=== PATIENT | male | born 1955 | race Caucasian/White ===

== ENCOUNTER → 2022-08-01 | Outpatient (CLI) | payer MEDICARE, MEDICAID, SELFPAY ==
--- NOTE | 2022-08-01 08:10 | ADU_ITS ---
Reason For Study: PVD Right Velocities Left Velocities Ext. Iliac Artery, dist = 157.8 cm./sec. Ext Iliac Artery, dist = 83.5 cm./sec. Common Femoral Artery, mid = 106.3 cm./sec. Common Femoral Artery, mid = 116.1 cm./sec. Supf Femoral Artery, prox = 68.6 cm./sec. Supf. Femoral Artery, prox = 103.9 cm./sec. Supf Femoral Artery, mid = 69.9 cm./sec. Prox anastomosis, 33.5 cm/sec. Supf Femoral Artery, dist. = 32.2 cm./sec. Prox graft, 61.6 cm/sec. Profunda Femoral Artery = 100.2 cm./sec. Prox/Mid graft, 65.8 cm/sec. Popliteal Artery, mid = 47.9 cm./sec. Mid graft, 76.4 cm/sec. Post. Tibial Artery, prox = 44.4 cm./sec. Mid/Distal graft, 85 cm/sec. Post. Tibial Artery, mid = 56.6 cm./sec. Distal graft, 53 cm/sec. Post. Tibial Artery, dist = 39.2 cm./sec. Distal anastomosis, 78.8 cm/sec. Peroneal Artery, prox = 33.9 cm./sec. Profunda Femoral Artery = 57 cm./sec. Peroneal Artery, mid = 32.7 cm./sec. Post. Tibial Artery, prox = 54.3 cm./sec. Peroneal Artery,dist = 15.1 cm./sec. Post Tibial Artery, mid = 47.5 cm./sec. Ant. Tibial Artery, prox = 25.6 cm./sec. Post Tibial Artery, dist. = 33.3 cm./sec. Ant. Tibial Artery, mid = 20.6 cm./sec. Peroneal Artery, prox = 23.7 cm./sec. Ant. Tibial Artery, dist = 21.6 cm./sec. Peroneal Artery, mid = 34.2 cm./sec. Peroneal Artery,dist. = 17.7 cm./sec. Ant.Tibial Artery, prox = 32.3 cm./sec. Ant Tibial Artery, mid = 22.8 cm./sec. Ant. Tibial Artery, distal = 24.8 cm./sec. Prox Anast: 1.31cm x 1.40cm Distal Anast: 1.34cm x 1.55cm. Procedure Exam performed in department. VL/US Art Duplex Bilat Lower Ext Interpretation Summary Right leg no stenosis noted. Left leg bypass graft patent and no stenosis. Ordering Physician: Kevin Rojas Referring Physician: Koby De La Cruz Performed By: Brittney Torres RDCS, RVT
--- NOTE | 2022-08-01 08:10 | CDU_ITS ---
Reason For Study: Pain Rt. Velocities/BP Lt. Velocities/BP Prox CCA 84/16 cm/sec. Prox CCA 111/27 cm/sec. Mid CCA 97/22 cm/sec. Mid CCA 86/20 cm/sec. Dist CCA 94/23 cm/sec. Dist CCA 83/24 cm/sec. Prox ICA 140/30 cm/sec. Prox ICA 131/41 cm/sec. Mid ICA 109/23 cm/sec. Mid ICA 118/32 cm/sec. Dist ICA 100/25 cm/sec. Dist ICA 103/27 cm/sec. Rt. ICA/CCA = 1.4. Lt. ICA/CCA = 1.5. Prox ECA 108/9 cm/sec. Prox ECA 79/7 cm/sec. Rt. Vert. 35/12 cm/sec. Lt. Vert. 35/11 cm/sec. Right Extracranial There is heterogeneous, irregular atherosclerotic plaque noted in the right common carotid artery. There is heterogeneous, irregular atherosclerotic plaque noted in the right internal carotid artery. There is intimal thickening but no significant atherosclerotic plaque noted in the right external carotid artery. Antegrade flow is noted in the right vertebral artery. Left Extracranial There is heterogeneous, irregular atherosclerotic plaque noted in the left common carotid artery. There is heterogeneous, irregular atherosclerotic plaque noted in the left internal carotid artery. There is no significant atherosclerotic plaque noted in the left external carotid artery. Antegrade flow is noted in the left vertebral artery. Procedure Carotid Duplex 68964. This is a Carotid Duplex examination using B-mode, color flow and specral Doppler. Exam performed in department. VL/Carotid Duplex Ultrasound Interpretation Summary Moderate (50-69%) stenosis right extracranial internal carotid. Moderate (50-69 %) stenosis left extracranial internal carotid. Flow within the vertebral arteries is antegrade bilaterally. Ordering Physician: Kevin Rojas Referring Physician: Koby De La Cruz Performed By: Brittney Torres, SHAHEEDCS, RVT
--- NOTE | 2022-08-01 08:18 | AAVD_ITS ---
Reason For Study: AAA Aorta Measurements Aorta Doppler Measurements Proximal aorta measures3.43 x 3.48cm. in cross- Peak systolic flow velocities within the proximal sectional axis. aorta measure 42.6 cm/sec. Proximal aorta measures3.42cm. in longitudinal Peak systolic flow velocities within the mid aorta axis. measure 45.5 cm/sec. Mid aorta measures2.59 x 2.30cm. in cross- Peak systolic flow velocities within the distal sectional axis. aorta measure 39.1 cm/sec. Mid aorta measures2.45cm. in longitudinal axis. Distal aorta measures1.91 x 2.03cm. in cross- sectional axis. Distal aorta measures1.84cm. in longitudinal axis. Left Iliac Artery Left iliac artery measures 1.35 x 1.08 cm. in the cross-sectional axis. Left iliac artery measures 0.98 cm. in the longitudinal axis. Peak systolic velocity in the left iliac artery measures 80.2 cm/sec. Right Iliac Artery Right iliac artery measures 1.35 x 1.29 cm. in the cross-sectional axis. Right iliac artery measures 1.04 cm. in the longitudinal axis. Peak systolic velocity in the right iliac artery measures 100.3 cm/sec. Procedure Aorta IVC Iliac vasculature or bypass grafts [id number]. Exam performed in department. VL/Abd Aortic/IVC Duplex scan Interpretation Summary 3.48cm aortic aneurysm. No stenosis noted. Ordering Physician: Kevin Rojas Referring Physician: Koby De La Cruz Performed By: Brittney Torres, TRACY, RVT
--- NOTE | 2022-08-01 08:18 | RDU_ITS ---
Reason For Study: PVD Right Renal Artery Left Renal Artery Right renal artery ostium Left renal artery ostium 133.7/34.9 153.2/34.5 RSV/EDV. PSV/EDV. Right renal artery proximal Left renal artery proximal PSV/EDV 151.2/39.3 PSV/EDV. 127.1/32.7 . Right renal artery mid 135.8/39.3 Left renal artery mid 124.9/28.3 PSV/EDV. PSV/EDV . Right renal artery distal Left renal artery distal 133.7/29.3 157.8/39.3 PSV/EDV. PSV/EDV. Right RAR 3.36. Left RAR 2.85. Right Renal Parenchyma Left Renal Parenchyma Upper Pole Medula 27.8/8.5 Left upper pole medulla 48.3/11.8 PSV/EDV. PSV/EDV . Right upper pole medulla EDR 0.3 . Left upper pole medulla EDR 0.2 . Right upper pole medulla R.I. Left upper pole medulla R.I. 0.76 . 0.70 . UP Cortex 34.6/12.7 PSV/EDV. Upper Ki Cortx 26.4/6.1 PSV/EDV. Left upper pole cortex EDR 0.4 . Right upper pole cortex EDR 0.2 . Left upper pole cortex R.I. 0.63 . Right upper pole cortex R.I. Left lower Pole medulla 19.1/9 0.77 . PSV/EDV . Right lower Pole medulla 20.7/6.1 Left lower pole medulla EDR 0.5 . PSV/EDV . Left lower pole medulla R.I. 0.53 . Right lower pole medulla EDR 0.3 . Lower Pole Cortx 21.4/7.3 PSV/EDV. Right lower pole medulla R.I. Left lower pole cortex EDR 0.3 . 0.71 . Left lower pole cortex R.I. 0.66 . Lower Pole Cortex 21.2/7 PSV/EDV. Left Renal Hilar Right lower pole cortex EDR 0.3 . LT Hilar avg 196.6/46.4 PSV/EDV . Right lower pole cortex R.I. Left hilar acceleration time 60 0.67 . m/sec. Right Renal Hilar Left Renal Dimensions Right Hilar avg 149.1/45.9 Left kidney size 10.18 cm . PSV/EDV. Left cortical dimension 2.24 cm . Right Renal Dimensions Right kidney size 12.78 cm . Right cortical dimension 1.74 cm . Aorta Proximal abdominal aorta 3.25 x 3.36 cm . Proximal abdominal aorta peak systolic velocity is 46.9 cm/sec . Distal abdominal aorta 2.06 x 2.01 cm . Distal abdominal aorta peak systolic velocity is 61 cm/sec . VL/Renal Artery Duplex Ultrasound Interpretation Summary Bilateral renals <60%. Ordering Physician: Kevin Rojas Referring Physician: Gurpreet De La Cruz Performed By: Brittney Torres, TRACY, RVT
--- NOTE | 2022-08-01 08:19 | ART_ITS ---
Reason For Study: PVD Procedure A bilateral lower extremity continuous wave Doppler with analog waveform analysis and ankle brachial indexes. Left Segmental Pressures Left brachial= 90mmHg. Left posterior tibial artery = 93mmHg. Left dorsalis pedis artery = 62mmHg. Left digit = 60 mmHg. The left dorsalis pedis waveforms are triphasic. The left posterior tibial artery waveforms are triphasic. Right Segmental Pressures Right brachial= 87mmHg. Right posterior tibial artery = 68mmHg. Right dorsalis pedis artery = 74mmHg. Right digit = 63 mmHg. The right dorsalis pedis waveforms are triphasic. The right posterior tibial artery waveforms are triphasic. Indices The right ankle brachial index by the dorsalis pedis is 0.82. The right ankle brachial index by the posterior tibial artery is 0.76. The right digital-brachial index is 0.70. The left ankle brachial index by the dorsalis pedis is 0.69. The left ankle brachial index by the posterior tibial artery is 1.03. The left digital-brachial index is 0.67. VL/Ankle Brachial Index Interpretation Summary Rild mild occlussive disease with Huyen 0.82. Left normal at rest 1.03. Bialteral triphasic flow. Ordering Physician: Kevin Rojas Referring Physician: Koby De La Cruz Performed By: Brittney Torres, TRACY, RVT
[2022-08-01 14:16] LABS: Absolute Lymphocyte Count 2.14 X10^3/uL (0.83-4.51); Absolute Neutrophil Count 12.4 X10^3/uL (2.0-7.7); Basophil# 0.05 X10^3/uL; Basophil% 0.3 % (0-1); Eosinophil# 0.09 X10^3/uL; Eosinophils% 0.6 % (0-5); Hematocrit 40.1 % (40-54); Lymphocyte # 2.14 X10^3/ul (0.83-4.51); Lymphocyte % 13.6 % (19-41); Mean Corp Hgb Conc 32.4 g/dL (32-36); Mean Corpuscular Hgb 27.1 pg (27.0-32.0); Mean Corpuscular Volume 83.7 fL (80-94); Mean Platelet Vol. 9.7 fl (6.2-12.0); Monocyte# 0.96 X10^3/uL; Monocyte% 6.1 % (0-10); NRBC Flagged by Analyzer 0 % (0-5); Neutrophil # 12.38 X10^3/uL (2.7-7.7); Neutrophil % 78.6 % (47-70); Platelet Count 351 K/mm3 (150-450); RBC Distribution Width CV 14.4 % (11.6-14.6); RBC Distribution Width SD 44.1 fl (35.1-43.9); Red Blood Count 4.79 M/mm3 (4.6-6.2); White Blood Count 15.7 K/mm3 (4.4-11.0)
[2022-08-01 14:20] LABS: Erythrocyte Sedimentation Rate 60 mm/hr (0-20)
[2022-08-01 14:43] LABS: ALB/GLOB Ratio 0.6 RATIO (0.9-2.4); AST(SGOT) 9 U/L (15-37); Alanine Aminotransfer ALT/SGPT 14 U/L (16-61); Albumin, Serum 2.8 g/dL (3.2-5.0); Alkaline Phosphatase 88 U/L (45-117); Anion Gap 6 (5-15); BUN 11 mg/dL (7-18); BUN/Creat Ratio 9.8 RATIO (10-20); Chloride 105 mmol/L (98-107); Creatinine, Serum 1.12 mg/dL (0.70-1.30); EST Glomerular Filtration Rate 69 mL/min (>60); Est Glom Filt Rate - Afr Amer 84 mL/min (>60); Globulin 4.4 g/dL (2.2-4.2); Glucose 139 mg/dL (74-106); LDH 171 U/L (87-241); Potassium 3.9 mmol/L (3.5-5.1); Protein, Total 7.2 g/dL (6.4-8.2); Sodium Level 137 mmol/L (136-145)
[2022-08-03 13:08] LABS: Anti-Centromere B Ab <0.2 AI (0.0-0.9); Anti-Chromatin <0.2 AI (0.0-0.9); Anti-Jo <0.2 AI (0.0-0.9); Anti-Scleroderma-70 AB <0.2 AI (0.0-0.9); RNP Ab <0.2 AI (0.0-0.9); SJOGREN'S Anti-SS-A test < 0.2 AI (0.0-0.9); SJOGREN'S Anti-SS-B test < 0.2 AI (0.0-0.9); Smith Ab <0.2 AI (0.0-0.9)
[2022-08-03 16:09] LABS: Endomysial Antibody IgA Negative (Negative)
[2022-08-03 16:53] LABS: Anti-dsDNA Ab 1 IU/mL (0-9)
[2022-08-05 14:36] LABS: Immunoglobulin A 271 mg/dL (61-437); t-Transglutaminase IgA <2 U/mL (0-3)
[2022-08-09 00:07] LABS: Albumin 3.1 g/dL (2.9-4.4); Alpha-1-Globulins 0.4 g/dL (0.0-0.4); Alpha-2-Globulins 1.5 g/dL (0.4-1.0); Gamma Globulin 0.7 g/dL (0.4-1.8); Immunoglobulin A 274 mg/dL (61-437); Immunoglobulin E 27 IU/mL (6-495); Immunoglobulin G 751 mg/dL (603-1613); Immunoglobulin M 81 mg/dL (20-172); PROEL- TOTAL PROTEIN 6.7 g/dL (6.0-8.5)
[2022-08-09 13:28] LABS: Perinuclear Ab (P-ANCA) <1:20 titer (Neg:<1:20)
== END | disposition home or self-care (01) ==
PROVIDERS: Internal Medicine Gastroenterology; PCP Internal Medicine Infectious Disease; Referring Provider Surgery Vascular Surgery; Visit Provider Surgery Vascular Surgery
DX: I65.23 Occlusion and stenosis of bilateral carotid arteries (principal); I42.9 Cardiomyopathy, unspecified; I73.9 Peripheral vascular disease, unspecified; E11.9 Type 2 diabetes mellitus without complications; I71.40 Abdominal aortic aneurysm, without rupture, unspecified; I25.10 Atherosclerotic heart disease of native coronary artery without angina pectoris; I10 Essential (primary) hypertension; K52.9 Noninfective gastroenteritis and colitis, unspecified; K21.9 Gastro-esophageal reflux disease without esophagitis
CPT/HCPCS: 36415; 80053; 82784; 82785; 83516; 83615; 84165; 85025; 85652; 86140; 86225; 86235; 86255; 86256; 86334; 93880; 93922; 93925; 93975; 93978

== ENCOUNTER → 2022-10-24 | Outpatient (CLI) | payer MEDICARE, MEDICAID, SELFPAY ==
[2022-10-24 11:13] LABS: Erythrocyte Sedimentation Rate 39 mm/hr (0-20)
[2022-10-24 11:15] LABS: Absolute Lymphocyte Count 1.08 X10^3/uL (0.83-4.51); Absolute Neutrophil Count 8.4 X10^3/uL (2.0-7.7); Basophil# 0.06 X10^3/uL; Basophil% 0.6 % (0-1); Eosinophil# 0.01 X10^3/uL; Eosinophils% 0.1 % (0-5); Hematocrit 42.1 % (40-54); Hemoglobin 13.7 g/dL (13.0-16.5); Lymphocyte # 1.08 X10^3/ul (0.83-4.51); Lymphocyte % 10.5 % (19-41); Mean Corp Hgb Conc 32.5 g/dL (32-36); Mean Corpuscular Hgb 29.1 pg (27.0-32.0); Mean Corpuscular Volume 89.4 fL (80-94); Mean Platelet Vol. 10.6 fl (6.2-12.0); Monocyte# 0.31 X10^3/uL; NRBC Flagged by Analyzer 0 % (0-5); Neutrophil # 8.36 X10^3/uL (2.7-7.7); Neutrophil % 81.2 % (47-70); Platelet Count 272 K/mm3 (150-450); RBC Distribution Width CV 18.7 % (11.6-14.6); RBC Distribution Width SD 60.6 fl (35.1-43.9); Red Blood Count 4.71 M/mm3 (4.6-6.2); White Blood Count 10.3 K/mm3 (4.4-11.0)
[2022-10-24 12:03] LABS: ALB/GLOB Ratio 0.8 RATIO (0.9-2.4); AST(SGOT) 9 U/L (15-37); Alanine Aminotransfer ALT/SGPT 24 U/L (16-61); Albumin, Serum 3.2 g/dL (3.2-5.0); Alkaline Phosphatase 78 U/L (45-117); Amylase 37 U/L (25-115); Anion Gap 9 (5-15); BUN 21 mg/dL (7-18); BUN/Creat Ratio 27.2 RATIO (10-20); Calcium,Total 8.9 mg/dL (8.5-10.1); Chloride 99 mmol/L (98-107); Creatinine, Serum 0.77 mg/dL (0.70-1.30); EST Glomerular Filtration Rate 107 mL/min (>60); Est Glom Filt Rate - Afr Amer 129 mL/min (>60); Ferritin 58 ng/mL (26-388); Globulin 3.9 g/dL (2.2-4.2); Glucose 397 mg/dL (74-106); Lipase 187 U/L (73-393); Potassium 4.6 mmol/L (3.5-5.1); Protein, Total 7.1 g/dL (6.4-8.2); Sodium Level 133 mmol/L (136-145)
[2022-10-26 10:08] LABS: QNTFERON TB Mitogen Value > 10.00 IU/mL (.); QNTFERON TB Nil Value 0.07 IU/mL (.); QNTFERON TB1+ Ag Value 0.07 IU/mL (.); QNTFERON TB2+ Ag Value 0.07 IU/mL (.)
[2022-10-26 16:43] LABS: PSA, Total Ultrasensitive 0.588 ng/mL (0.000-4.000); QNTIFERON TB Positive Criteria Negative (Negative)
== END | disposition home or self-care (01) ==
PROVIDERS: PCP Internal Medicine Infectious Disease; Referring Provider Internal Medicine Gastroenterology; Visit Provider Internal Medicine Gastroenterology
DX: K52.9 Noninfective gastroenteritis and colitis, unspecified (principal); E11.9 Type 2 diabetes mellitus without complications; K21.9 Gastro-esophageal reflux disease without esophagitis
CPT/HCPCS: 36415; 80053; 82150; 82728; 83690; 84153; 84154; 85025; 85652; 86140; 86480

== ENCOUNTER → 2023-09-29 | Outpatient (CLI) | payer MEDICARE, MEDICAID, SELFPAY ==
--- NOTE | 2023-09-29 07:26 | ADU_ITS ---
Reason For Study: HX LLE BPG Right Velocities Left Velocities Ext. Iliac Artery, dist = 122.3 cm./sec. Ext Iliac Artery, dist = 91.2 cm./sec. Common Femoral Artery, mid = 98.2 cm./sec. Common Femoral Artery, mid = 114.9 cm./sec. Supf Femoral Artery, prox = 93.0 cm./sec. Supf. Femoral Artery, prox = 36.6 cm./sec. Supf Femoral Artery, mid = 93.0 cm./sec. Prox anastomosis, 38.6 cm/sec. Supf Femoral Artery, dist. = 60.1 cm./sec. Prox graft, 80.2 cm/sec. Profunda Femoral Artery = 86.7 cm./sec. Mid graft, 87.5 cm/sec. Popliteal Artery, mid = 54.8 cm./sec. Distal graft, 67.4 cm/sec. Post. Tibial Artery, prox = 87.5 cm./sec. Distal anastomosis, 74.7 cm/sec. Post. Tibial Artery, mid = 65.6 cm./sec. Profunda Femoral Artery = 113.1 cm./sec. Post. Tibial Artery, dist = 60.1 cm./sec. Post. Tibial Artery, prox = 53.7 cm./sec. Peroneal Artery, prox = 38.2 cm./sec. Post Tibial Artery, mid = 52.6 cm./sec. Peroneal Artery, mid = 38.6 cm./sec. Post Tibial Artery, dist. = 70.2 cm./sec. Peroneal Artery,dist = 33.0 cm./sec. Peroneal Artery, prox = 57.0 cm./sec. Ant. Tibial Artery, prox = 33.9 cm./sec. Peroneal Artery, mid = 58.1 cm./sec. Ant. Tibial Artery, mid = 45.3 cm./sec. Peroneal Artery,dist. = 41.7 cm./sec. Ant. Tibial Artery, dist = 47.1 cm./sec. Ant.Tibial Artery, prox = 57.0 cm./sec. Ant Tibial Artery, mid = 50.4 cm./sec. Ant. Tibial Artery, distal = 46.1 cm./sec. Prox Anast: 1.35 cm. Distal Anast: 1.27 cm. VL/US Art Duplex Bilat Lower Ext Interpretation Summary Bilateral no stenosis with triphasic flow. Ordering Physician: Kevin Rojas Referring Physician: Koby De La Cruz Performed By: Renan Wong RVT
--- NOTE | 2023-09-29 07:26 | CDU_ITS ---
Reason For Study: CAD Rt. Velocities/BP Lt. Velocities/BP Prox CCA 70.0/24.3 cm/sec. Prox CCA 83.9/23.4 cm/sec. Mid CCA 101.0/31.6 cm/sec. Mid CCA 91.6/23.4 cm/sec. Dist CCA 73.6/24.3 cm/sec. Dist CCA 69.9/22.6 cm/sec. Prox ICA 102.3/26.2 cm/sec. Prox ICA 89.1/27.8 cm/sec. Mid ICA 79.7/24.7 cm/sec. Mid ICA 80.6/22.0 cm/sec. Dist ICA 58.5/20.1 cm/sec. Dist ICA 81.8/29.0 cm/sec. Rt. ICA/CCA = 1.0. Lt. ICA/CCA = 1.0. Prox ECA 132.1/31.6 cm/sec. Prox ECA 87.2/15.7 cm/sec. Rt. Vert. 29.4/9.5 cm/sec. Lt. Vert. 40.7/15.4 cm/sec. Right Extracranial There is heterogeneous, irregular atherosclerotic plaque noted in the right common carotid artery. There is heterogeneous, irregular atherosclerotic plaque noted in the right internal carotid artery. The atherosclerotic plaque causes acoustic shadowing. There is heterogeneous, irregular atherosclerotic plaque noted in the right external carotid artery. Antegrade flow is noted in the right vertebral artery. Left Extracranial There is homogeneous, smooth atherosclerotic plaque noted in the left common carotid artery. There is heterogeneous, irregular atherosclerotic plaque noted in the left internal carotid artery. There is homogeneous, smooth atherosclerotic plaque noted in the left external carotid artery. Antegrade flow is noted in the left vertebral artery. VL/Carotid Duplex Ultrasound Interpretation Summary Mild (<50%) stenosis right extracranial internal carotid. Mild (<50%) stenosis left extracranial internal carotid. Flow within the vertebral arteries is antegrade bilaterally. Ordering Physician: Kevin Rojas Referring Physician: Koby De La Cruz Performed By: Renan Wong RVT
--- NOTE | 2023-09-29 07:26 | AAVD_ITS ---
Reason For Study: AAA Aorta Measurements Aorta Doppler Measurements Proximal aorta measures3.28 x 3.56cm. in cross- Peak systolic flow velocities within the proximal sectional axis. aorta measure 95.9 cm/sec. Proximal aorta measures3.54cm. in longitudinal Peak systolic flow velocities within the mid aorta axis. measure 57.8 cm/sec. Mid aorta measures3.49 x 3.41cm. in cross- Peak systolic flow velocities within the distal sectional axis. aorta measure 27.3 cm/sec. Mid aorta measures3.47cm. in longitudinal axis. Distal aorta measures3.88 x 3.81cm. in cross- sectional axis. Distal aorta measures3.73cm. in longitudinal axis. Left Iliac Artery Left iliac artery measures 1.14 x 1.14 cm. in the cross-sectional axis. Left iliac artery measures 1.16 cm. in the longitudinal axis. Peak systolic velocity in the left iliac artery measures 223.3 cm/sec. Right Iliac Artery Right iliac artery measures 1.06 x 1.10 cm. in the cross-sectional axis. Right iliac artery measures 1.14 cm. in the longitudinal axis. Peak systolic velocity in the right iliac artery measures 82.0 cm/sec. Procedure Aorta IVC Iliac vasculature or bypass grafts [id number]. The exam was of fair technical quality due to Bowel Gas / Body Habitus. Exam performed in department. VL/Abd Aortic/IVC Duplex scan Interpretation Summary Aortic aneurysm 3.88cm. Ordering Physician: Kevin Rojas Referring Physician: Koby De La Cruz Performed By: Renan Wong RVT
--- NOTE | 2023-09-29 07:26 | ART_ITS ---
Reason For Study: PVD Procedure A bilateral lower extremity continuous wave Doppler with analog waveform analysis and ankle brachial indexes. Left Segmental Pressures Left brachial= 137mmHg. Left posterior tibial artery = 139mmHg. Left dorsalis pedis artery = 137mmHg. Left digit = 120 mmHg. The left posterior tibial artery waveforms are triphasic. The left dorsalis pedis waveforms are triphasic. Right Segmental Pressures Right brachial= 136mmHg. Right posterior tibial artery = 133mmHg. Right dorsalis pedis artery = 120mmHg. Right digit = 101 mmHg. The right posterior tibial artery waveforms are triphasic. The right dorsalis pedis waveforms are triphasic. Indices The right ankle brachial index by the posterior tibial artery is 0.97. The right ankle brachial index by the dorsalis pedis is 0.88. The right digital-brachial index is 0.74. The left ankle brachial index by the posterior tibial artery is 1.01. The left ankle brachial index by the dorsalis pedis is 1.00. The left digital-brachial index is 0.88. VL/Ankle Brachial Index Interpretation Summary Bilateral normal at rest with SHAYNE 0.97 and 1.01. Ordering Physician: Kevin Rojas Referring Physician: Koby De La Cruz Performed By: Renan Wong RVT
== END | disposition home or self-care (01) ==
LOC: CVS 07:24
PROVIDERS: PCP Internal Medicine Infectious Disease; Referring Provider Surgery Vascular Surgery; Visit Provider Surgery Vascular Surgery
DX: I65.23 Occlusion and stenosis of bilateral carotid arteries (principal); I73.9 Peripheral vascular disease, unspecified; I71.40 Abdominal aortic aneurysm, without rupture, unspecified; E11.9 Type 2 diabetes mellitus without complications; I10 Essential (primary) hypertension
CPT/HCPCS: 93880; 93922; 93925; 93978

== ENCOUNTER → 2024-01-02 | Outpatient (CLI) | payer MEDICARE, MEDICAID, SELFPAY ==
[2024-01-02 10:37] LABS: Erythrocyte Sedimentation Rate 9 mm/hr (0-20)
[2024-01-02 10:39] LABS: Absolute Lymphocyte Count 1.68 X10^3/uL (0.83-4.51); Absolute Neutrophil Count 6.1 X10^3/uL (2.0-7.7); Basophil# 0.05 X10^3/uL; Basophil% 0.6 % (0-1); Eosinophil# 0.08 X10^3/uL; Eosinophils% 0.9 % (0-5); Hemoglobin 14.4 g/dL (13.0-16.5); Lymphocyte # 1.68 X10^3/ul (0.83-4.51); Lymphocyte % 19.6 % (19-41); Mean Corpuscular Hgb 29.3 pg (27.0-32.0); Mean Corpuscular Volume 91.6 fL (80-94); Mean Platelet Vol. 9.7 fl (6.2-12.0); Monocyte# 0.63 X10^3/uL; Monocyte% 7.4 % (0-10); NRBC Flagged by Analyzer 0 % (0-5); Neutrophil # 6.07 X10^3/uL (2.7-7.7); Neutrophil % 70.9 % (47-70); Platelet Count 263 K/mm3 (150-450); RBC Distribution Width CV 13.8 % (11.6-14.6); RBC Distribution Width SD 46.2 fl (35.1-43.9); Red Blood Count 4.91 M/mm3 (4.6-6.2); White Blood Count 8.6 K/mm3 (4.4-11.0)
[2024-01-02 14:42] LABS: ALB/GLOB Ratio 0.8 RATIO (0.9-2.4); AST(SGOT) 10 U/L (15-37); Alanine Aminotransfer ALT/SGPT 14 U/L (16-61); Alkaline Phosphatase 107 U/L (45-117); Anion Gap 4 (5-15); BUN 8 mg/dL (7-18); BUN/Creat Ratio 11.6 RATIO (10-20); Calcium,Total 8.9 mg/dL (8.5-10.1); Chloride 106 mmol/L (98-107); Creatinine, Serum 0.69 mg/dL (0.70-1.30); EST Glomerular Filtration Rate 121 mL/min (>60); Est Glom Filt Rate - Afr Amer 147 mL/min (>60); Globulin 3.7 g/dL (2.2-4.2); Glucose 132 mg/dL (74-106); Potassium 4.1 mmol/L (3.5-5.1); Protein, Total 6.7 g/dL (6.4-8.2); Sodium Level 138 mmol/L (136-145)
[2024-01-03 15:08] LABS: Albumin 3.3 g/dL (2.9-4.4); Alpha-1-Globulins 0.3 g/dL (0.0-0.4); Alpha-2-Globulins 1.1 g/dL (0.4-1.0); Gamma Globulin 0.7 g/dL (0.4-1.8); IgG, Quant 704 mg/dL (603-1613); Immunoglobulin A 293 mg/dL (61-437); Immunoglobulin G, Subclass 1 370 mg/dL (248-810); Immunoglobulin G, Subclass 2 244 mg/dL (130-555); Immunoglobulin G, Subclass 3 41 mg/dL (15-102); Immunoglobulin G, Subclass 4 1 mg/dL (2-96); Immunoglobulin M 72 mg/dL (20-172); PROEL- TOTAL PROTEIN 6.2 g/dL (6.0-8.5)
== END | disposition home or self-care (01) ==
LOC: LAB 09:42
PROVIDERS: PCP Internal Medicine; Referring Provider Internal Medicine Gastroenterology; Visit Provider Internal Medicine Gastroenterology
DX: D50.8 Other iron deficiency anemias (principal); K58.9 Irritable bowel syndrome, unspecified; R19.7 Diarrhea, unspecified
CPT/HCPCS: 36415; 80053; 82784; 82787; 84165; 85025; 85652; 86140; 86334

== ENCOUNTER → 2024-12-06 | Outpatient (CLI) | payer MEDICARE, MEDICAID, SELFPAY ==
[2024-12-06 09:21] LABS: Absolute Lymphocyte Count 1.42 X10^3/uL (0.83-4.51); Absolute Neutrophil Count 6.4 X10^3/uL (2.0-7.7); Basophil# 0.05 X10^3/uL; Basophil% 0.6 % (0-1); Eosinophil# 0.02 X10^3/uL; Eosinophils% 0.2 % (0-5); Hematocrit 42.4 % (40-54); Hemoglobin 13.9 g/dL (13.0-16.5); Lymphocyte # 1.42 X10^3/ul (0.83-4.51); Lymphocyte % 17.1 % (19-41); Mean Corp Hgb Conc 32.8 g/dL (32-36); Mean Corpuscular Hgb 31.2 pg (27.0-32.0); Mean Corpuscular Volume 95.3 fL (80-94); Mean Platelet Vol. 10.1 fl (6.2-12.0); Monocyte# 0.21 X10^3/uL; Monocyte% 2.5 % (0-10); NRBC Flagged by Analyzer 0 % (0-5); Neutrophil # 6.43 X10^3/uL (2.7-7.7); Neutrophil % 77.7 % (47-70); Platelet Count 206 K/mm3 (150-450); RBC Distribution Width CV 14.8 % (11.6-14.6); RBC Distribution Width SD 52.2 fl (35.1-43.9); Red Blood Count 4.45 M/mm3 (4.6-6.2); White Blood Count 8.3 K/mm3 (4.4-11.0)
[2024-12-06 09:49] LABS: Erythrocyte Sedimentation Rate 16 mm/hr (0-20)
[2024-12-06 09:50] LABS: ALB/GLOB Ratio 1.4 RATIO (0.9-2.4); AST(SGOT) 14 U/L (<=37); Alanine Aminotransfer ALT/SGPT 15 U/L (<=46); Albumin, Serum 3.7 g/dL (3.4-4.8); Alkaline Phosphatase 68 U/L (40-129); Anion Gap 12 (5-15); BUN 18 mg/dL (4-19); BUN/Creat Ratio 21.6 RATIO (10-20); CRP 3.56 mg/L (0.0-3.0); Calcium,Total 8.5 mg/dL (7.6-11.0); Carbon Dioxide 23.1 mmol/L (21.0-32.0); Chloride 100 mmol/L (98-108); Creatinine, Serum 0.82 mg/dL (0.70-1.20); EST Glomerular Filtration Rate 95 (>60); Globulin 2.6 g/dL (2.2-4.2); Glucose 186 mg/dL (70-99); Potassium 4.1 mmol/L (3.3-5.1); Protein, Total 6.4 g/dL (5.9-8.4); Sodium Level 135 mmol/L (133-145); Total Bilirubin 0.37 mg/dL (0.00-1.30)
[2024-12-10 22:07] LABS: HEPATITIS B SURFACE AG Negative (Negative); Hep C Antibodies Non Reactive (Non Reactive); Hepatitis A IgM Antibody Negative (Negative); Hepatitis B Core AB IgM Negative (Negative); QNTFERON TB Mitogen Value 7.62 IU/mL (.); QNTFERON TB Nil Value 0.01 IU/mL (.); QNTFERON TB1+ Ag Value 0.02 IU/mL (.); QNTFERON TB2+ Ag Value 0.02 IU/mL (.); QNTIFERON TB Positive Criteria Negative (Negative)
== END | disposition home or self-care (01) ==
PROVIDERS: PCP Internal Medicine; Referring Provider Internal Medicine Gastroenterology; Visit Provider Internal Medicine Gastroenterology
DX: K52.9 Noninfective gastroenteritis and colitis, unspecified (principal); K75.9 Inflammatory liver disease, unspecified; D50.8 Other iron deficiency anemias
CPT/HCPCS: 36415; 80053; 80074; 85025; 85652; 86140; 86480

== ENCOUNTER → 2024-12-12 | Outpatient (CLI) | payer MEDICARE, MEDICAID, SELFPAY ==
--- NOTE | 2024-12-12 07:35 | ADU_ITS ---
Reason For Study Reason For Study: PVD Right Velocities Left Velocities Ext. Iliac Artery, dist = 77.3 cm./sec. Ext Iliac Artery, dist = 86.6 cm./sec. Common Femoral Artery, mid = 111.2 cm./sec. Common Femoral Artery, prox = 116.1 cm./sec. Supf Femoral Artery, prox = 63.7 cm./sec. Common Femoral Artery, mid = 25.7 cm./sec. Supf Femoral Artery, mid = 74.8 cm./sec. Supf. Femoral Artery, prox = 170.8 cm./sec. Supf Femoral Artery, dist. = 37.3 cm./sec. Supf. Femoral Artery, mid = 82.7 cm./sec. Profunda Femoral Artery = 80.2 cm./sec. SFA distal, No flow. Popliteal Artery, mid = 57 cm./sec. Eduin, No flow Post. Tibial Artery, prox = 45.3 cm./sec. Profunda Femoral Artery = 114.9 cm./sec Post. Tibial Artery, mid = 40.5 cm./sec. Post. Tibial Artery, dist = 30.1 cm./sec. Fem-Pop Bypass Peroneal Artery, prox = 40 cm./sec. Prox anastamosis, 65 cm/sec. Peroneal Artery, mid = 24.8 cm./sec. Prox graft, 55.1 cm/sec. Peroneal Artery,dist = 17 cm./sec. Mid graft, 80.9 cm/sec. Ant. Tibial Artery, prox = 23.4 cm./sec. Distal graft, 76 cm/sec. Ant. Tibial Artery, mid = 16.3 cm./sec. Distal anastamosis, 92.8 cm/sec. Ant. Tibial Artery, dist = 24.1 cm./sec. T/P Trunk, 120.5 cm/sec. Post. Tibial Artery, prox = 83.4 cm./sec. Post Tibial Artery, mid = 49 cm./sec. Post Tibial Artery, dist. = 31.3 cm./sec. Peroneal Artery, prox = 33.9 cm./sec. Peroneal Artery, mid = 28.7 cm./sec. Peroneal Artery,dist. = 22.1 cm./sec. Ant.Tibial Artery, prox = 42.6 cm./sec. Ant Tibial Artery, mid = 34.8 cm./sec. Ant. Tibial Artery, distal = 33.8 cm./sec. Procedure Exam performed in department. /US Art Duplex Bilat Lower Ext Interpretation Summary The right lower extremity arterial duplex is essentially normal. The left lower extremity arterial duplex is essentially normal. Ordering Physician: Kevin Rojas Referring Physician: Chet Santana Performed By: Lilian Grover RVT
--- NOTE | 2024-12-12 07:35 | CDU_ITS ---
Reason For Study Reason For Study: Carotid stenosis Rt. Velocities/BP Lt. Velocities/BP Prox CCA 79.6/14.5 cm/sec. Prox CCA 79.6/16 cm/sec. Mid CCA 74/16.3 cm/sec. Mid CCA 73.5/13.3 cm/sec. Dist CCA 76.8/14.5 cm/sec. Dist CCA 70/13.3 cm/sec. Prox ICA 76.5/13.9 cm/sec. Prox ICA 82.3/18.6 cm/sec. Mid ICA 59.3/20 cm/sec. Mid ICA 63.1/21.2 cm/sec. Dist ICA 51.6/16.5 cm/sec. Dist ICA 57.8/16 cm/sec. Rt. ICA/CCA = 1.03. Lt. ICA/CCA = 1.12. Prox ECA 90/15.2 cm/sec. Prox ECA 70/7.2 cm/sec. Rt. Vert. 27.3/7.2 cm/sec. Lt. Vert. 23.8/7.2 cm/sec. Right Extracranial There is intimal thickening but no significant atherosclerotic plaque noted in the right common carotid artery. There is heterogeneous, irregular atherosclerotic plaque noted in the right internal carotid artery. The atherosclerotic plaque causes acoustic shadowing. There is intimal thickening but no significant atherosclerotic plaque noted in the right external carotid artery. Antegrade flow is noted in the right vertebral artery. Left Extracranial There is intimal thickening but no significant atherosclerotic plaque noted in the left common carotid artery. There is heterogeneous, irregular atherosclerotic plaque noted in the left internal carotid artery. The atherosclerotic plaque causes acoustic shadowing. There is intimal thickening but no significant atherosclerotic plaque noted in the left external carotid artery. Antegrade flow is noted in the left vertebral artery. Procedure Carotid Duplex 82018. This is a Carotid Duplex examination using B-mode, color flow and specral Doppler. Exam performed in department. VL/Carotid Duplex Ultrasound Interpretation Summary Mild (<50%) stenosis right extracranial internal carotid. Mild (<50%) stenosis left extracranial internal carotid. Patent and antegrade vertebrals bilaterally. Ordering Physician: Kevin Rojas Referring Physician: Chet Santana Performed By: Lilian Grover RVT
--- NOTE | 2024-12-12 07:35 | ART_ITS ---
Reason For Study Reason For Study: PVD Procedure A bilateral lower extremity continuous wave Doppler with analog waveform analysis and ankle brachial indexes. Left Segmental Pressures Left brachial= 116mmHg. Left posterior tibial artery = 114mmHg. Left dorsalis pedis artery = 125mmHg. Left digit = 130 mmHg. The left dorsalis pedis waveforms are triphasic. The left posterior tibial artery waveforms are triphasic. Right Segmental Pressures Right brachial= 124mmHg. Right posterior tibial artery = 114mmHg. Right dorsalis pedis artery = 99mmHg. Right digit = 143 mmHg. The right dorsalis pedis waveforms are biphasic. The right posterior tibial artery waveforms are triphasic. Indices The right ankle brachial index by the dorsalis pedis is 0.80. The right ankle brachial index by the posterior tibial artery is 0.92. The right digital-brachial index is 1.15. The left ankle brachial index by the dorsalis pedis is 1.01. The left ankle brachial index by the posterior tibial artery is 0.92. The left digital-brachial index is 1.05. VL/Ankle Brachial Index Interpretation Summary Resting ankle-brachial indices appear bilaterally normal. Ordering Physician: Kevin Rojas Referring Physician: Chet Santana MD Performed By: Lilian Grover RVT
--- NOTE | 2024-12-12 07:35 | AAVD_ITS ---
Reason For Study Reason For Study: AAA Aorta Measurements Aorta Doppler Measurements Proximal aorta measures1.73 x 1.94cm. in cross-sectional Peak systolic flow velocities within the proximal aorta axis. measure 76 cm/sec. Proximal aorta measures1.85cm. in longitudinal axis. Peak systolic flow velocities within the mid aorta measure Mid aorta measures3.79 x 3.69cm. in cross-sectional axis. 52.7 cm/sec. Mid aorta measures3.77cm. in longitudinal axis. Peak systolic flow velocities within the distal aorta Distal aorta measures2.49 x 2.51cm. in cross-sectional axis.measure 56.4 cm/sec. Distal aorta measures2.53.cm. in longitudinal axis. Left Iliac Artery Left iliac artery measures 1.05 x 1.11 cm. in the cross-sectional axis. Left iliac artery measures 1.10 cm. in the longitudinal axis. Peak systolic velocity in the left iliac artery measures 85.7 cm/sec. Right Iliac Artery Right iliac artery measures 1.11 x 1.17 cm. in the cross-sectional axis. Right iliac artery measures 1.14 cm. in the longitudinal axis. Peak systolic velocity in the right iliac artery measures 94.8 cm/sec. Procedure Aorta IVC Iliac vasculature or bypass grafts [id number]. Exam performed in department. VL/Abd Aortic/IVC Duplex scan Interpretation Summary 3.8cm aortic aneurysm. Ordering Physician: Kevin Rojas Referring Physician: Chet Santana Performed By: Lilian Grover RVT
== END | disposition home or self-care (01) ==
PROVIDERS: PCP Internal Medicine; Referring Provider Surgery Vascular Surgery; Visit Provider Surgery Vascular Surgery
DX: I65.23 Occlusion and stenosis of bilateral carotid arteries (principal); E11.9 Type 2 diabetes mellitus without complications; I73.9 Peripheral vascular disease, unspecified; I25.10 Atherosclerotic heart disease of native coronary artery without angina pectoris; I10 Essential (primary) hypertension; I71.40 Abdominal aortic aneurysm, without rupture, unspecified
CPT/HCPCS: 93880; 93922; 93925; 93978

== ENCOUNTER → 2025-04-22 | Outpatient (CLI) | payer MEDICARE, MEDICAID, SELFPAY ==
--- NOTE | 2025-04-22 13:21 | CT_ITS ---
PROCEDURE: CTA ABD W/RUNOFF W/WO CONTRAST 04/22/2025 REASON FOR EXAM: INFRARENAL ABDOMINAL AORTIC ANEURYSM, WITHOUT RUPT TECHNIQUE: CTA ABD W/RUNOFF W/WO CONTRAST Multiplanar Sagittal and Coronal images were obtained. One or more dose reduction techniques were used (e.g., Automated exposure control, adjustment of the mA and/or kV according to patient size, use of iterative reconstruction technique). CTA ABD W/RUNOFF W/WO CONTRAST Multiplanar Sagittal and Coronal images were obtained. 3D and or MIPS post processing was performed CONTRAST: Isovue 370 VOLUME: 100 mL RADIATION DOSE SUMMARY: CTDlvol: 10 mGy DLP: 1670.62 mGycm COMPARISON: None FINDINGS: Aorta: Saccular infrarenal abdominal aortic aneurysm with a transverse dimension of 3.7 cm. Scattered calcified aortic plaques. Celiac: Calcific plaques of the splenic artery. SMA: Minimal plaque at the origin of the superior mesenteric artery. JEAN : Not visualized. Right Renal: No stenotic plaque Left Renal: No stenotic plaque. RIGHT Iliac Arteries: Common Iliac: Nonocclusive atherosclerotic plaques. External Iliac: Nonocclusive atherosclerotic plaques. Internal Iliac: Unremarkable LEFT Iliac Arteries: Common Iliac: Nonocclusive atherosclerotic plaque formation. External Iliac: Atherosclerotic plaques causing moderate stenosis in its distal portion. Internal Iliac: Unremarkable. RIGHT Lower Extremity: Common Femoral: Mild mixed calcified and soft plaque identified. Superficial Femoral: Mild mixed calcified and soft plaque identified. Deep Femoral: Mild mixed calcified and soft plaque identified. Popliteal: Mild mixed calcified and soft plaque identified. Anterior Tibial: Patent Tibioperoneal Trunk: [id number] stenotic calcific plaques. Posterior Tibial: Not visualized. Peroneal: Patent although focal areas of tight stenosis. Dorsalis Pedis: Not opacified. LEFT Lower Extremity: Common Femoral: Moderate mixed calcified and soft plaque identified. No high grade stenosis. Superficial Femoral: Moderate mixed calcified and soft plaque identified. No high grade stenosis. Deep Femoral: Popliteal: Small Anterior Tibial: Patent. Tibioperoneal Trunk: Patent with focal areas of narrowing. Posterior Tibial: Patent with focal areas of narrowing. Peroneal: Patent Dorsalis Pedis: Not opacified. Other Stents/Grafts: None Other Findings: CT/CTA Abd w/Runoff W/WO Contrast IMPRESSION: Saccular infrarenal abdominal aortic aneurysm with a transverse dimension of 3. 7 cm. Calcific plaques seen in both lower extremities with several bilaterally. Reading Location: [id number]
== END | disposition home or self-care (01) ==
LOC: CT 13:15
PROVIDERS: PCP Internal Medicine; Referring Provider Surgery Vascular Surgery; Visit Provider Surgery Vascular Surgery
DX: I71.43 Infrarenal abdominal aortic aneurysm, without rupture (principal); E11.9 Type 2 diabetes mellitus without complications; I70.213 Atherosclerosis of native arteries of extremities with intermittent claudication, bilateral legs; I10 Essential (primary) hypertension; F17.200 Nicotine dependence, unspecified, uncomplicated
CPT/HCPCS: 75635; Q9967